=== PATIENT | female | born 1995 | race Caucasian/White ===

== ENCOUNTER 2017-12-25 20:44 | Inpatient (IN) | payer OTHER, SELFPAY ==
[2017-12-25] MEDS ORDERED: Ondansetron HCl/PF 4 MG/2 ML Vial ONE (21:11)
[2017-12-25] MEDS ORDERED: Acetaminophen 500 MG TAB ONE (21:11)
[2017-12-25 21:15] LABS: Bilirubin Negative (Negative); Blood, Urine Negative (Negative); Clarity CLOUDY (Clear); Glucose, Urine (Dipstick) Negative (Negative); Leukocyte Small (Negative); Nitrite Negative (Negative); Protein, Urine (Dipstick) Trace mg/dL (Neg-Trace); Specific Gravity, Urine 1.011 (1.002-1.036); Urobilinogen 0.2 mg/dL (0.2-1.0); pH, Urine 8.5 (5.0-9.0)
[2017-12-25 21:17] LABS: Bacteria/HPF None Seen HPF (None Seen); Hyaline Casts/LPF 0-3 HYALINE CAST LPF (0-3 Hyaline); RBC/HPF 0-3 HPF (0-3); Squamous Epithelial 0-3 HPF (0-3); WBC/HPF 21-50 HPF (0-3)
[2017-12-25] MEDS ORDERED: cefTRIAXone\\ROCEPHIN 1 GM VIAL ONE (21:51)
[2017-12-25 21:58] LABS: #Lymphocytes 2.1 thou/uL (1.20-3.40); #Neutrophils 11.3 thou/uL (1.40-6.50); %Basophils 0.1 % (0.0-1.0); %Eosinophils 0.2 % (0.0-10.0); %Lymphocytes 14.4 % (21.0-51.0); %Monocytes 7.2 % (0.0-10.0); %Neutrophils 78.1 % (42.0-75.0); Hemoglobin 12.1 g/dL (12.0-16.0); Mean Corpuscular HGB CONC 34.1 g/dL (32.0-36.0); Mean Corpuscular Hemoglobin 29.2 pg (27.0-31.0); Mean Corpuscular Volume 85.7 fL (78.0-98.0); Mean Platelet Volume 8.1 fL (7.4-10.4); Platelet Count 195 thou/uL (130-400); RBC Distribution Width 12.9 % (11.5-14.5); Red Blood Cell (RBC) Count 4.13 mill/uL (4.20-5.40); White Blood Cell (WBC) Count 14.4 thou/uL (4.8-10.8)
[2017-12-25 22:23] LABS: ALT (SGPT) Less than 7 U/L (8-55); AST (SGOT) 11 U/L (5-34); Albumin 3.5 g/dL (3.5-5.0); Alkaline Phosphatase 71 U/L (40-150); Anion Gap 18 mmol/L (10-20); BUN (Urea Nitrogen) 5 mg/dL (7.0-18.7); Bilirubin, Total 0.4 mg/dL (0.2-1.2); Calc. Creatinine Clearance 0 mL/min (70-130); Calcium 8.8 mg/dL (7.8-10.44); Carbon Dioxide 14 mmol/L (22-29); Chloride 106 mmol/L (98-107); Estimated GFR-MDRD Greater than 90; Globulin 3.1 g/dL (2.4-3.5); Glucose 83 mg/dL (70-105); Potassium 3.7 mmol/L (3.5-5.1); Protein, Total 6.6 g/dL (6.0-8.3); Sodium 134 mmol/L (136-145)
--- NOTE | 2017-12-25 22:48 | PDOC.EVN ---
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 In brief, she is a 22 yo G1 at approx 17 weeks by stated EDC who presents with back pain. Voiuded urine had WBCs but no bacteria seen. Temp is 98.8. ED provider suspected right CVAT. She has care by outside MD. As urine was voided, I have requested a cath specimen for better cliical decision making. I have also ordered/requested a ON sono for dates, a VP3, and a urine GC/Chl PCR. CMP is normal. WBC on CBC at 14. Await further eval.
[2017-12-25 23:13] LABS: Bilirubin Negative (Negative); Blood, Urine Negative (Negative); Clarity CLEAR (Clear); Glucose, Urine (Dipstick) Negative (Negative); Leukocyte Small (Negative); Nitrite Negative (Negative); Protein, Urine (Dipstick) Negative (Neg-Trace); Urobilinogen 0.2 mg/dL (0.2-1.0)
[2017-12-25 23:14] LABS: Bacteria/HPF None Seen HPF (None Seen); Hyaline Casts/LPF 4-6 HYALINE CAST LPF (0-3 Hyaline); Pathc Cast-AUWi Flag 0.43 (0-2.49); RBC/HPF 0-3 HPF (0-3); Squamous Epithelial 0-3 HPF (0-3); WBC/HPF 21-50 HPF (0-3)
[2017-12-25 23:26] LABS: Renal Epithelial 0-3 HPF (0-3)
--- NOTE | 2017-12-25 23:46 | PDOC.EVN ---
Event Note - Event Note Event Note: Patient seen in ER bed 3 just now and H&P completed. H&P scanned. In brief: (at 2335) HPI: 22 yo W at 16 weeks and 5 days by stated EDC with right back pain and HX UTI at 10 weeks (treated). Denies pain on urination or fevers at home. No medical isues. No VB, no LOF, no contractions. Can tolerate PO Here in ED, cath UA with WBCs...urine culture pending. Rocephin 1 gram IV in ED ordered. CMP is normal. Review of systems: per HPI Past medical: neg Past surg: none Allergies: None OB HX: x 1 in past Physical: Vitals stable, afebrile NAD Ut soft nt possible slight rt CVAT no VB Labs: WBC 14 CMP wnl OB Sono done...pending read VP3 pending GC/Chl pending Assessment/Plan: Possible rt pyelo at 16 weeks 5 days 1. Check urine culture 2. await sono read 3. Start IV Rocephin and po macrobid 4. vitamins 5. reg diet 6. IVFs at 125ml/hr mainline
--- NOTE | 2017-12-25 23:52 | ULT ---
OBSTETRICAL ULTRASOUND: 12/25/17 INDICATION: Right sided flank pain for one week without history of bleeding. FINDINGS: There is a single live intrauterine gestation in transverse presentation with the head to the materna l right. The placenta is anterior in location without evidence of previa. The cervical length measure d 5 cm. The cardiac activity is noted at 168 beats per minute. There is blood flow to bilateral ovaries that appear within normal limits. The visualized survey appear within normal limits. The head, heart, stomach, kidneys, cor d insertion, spine and visualized extremities appear within normal limits. A three vessel cord demons trated. Lips and nose were not seen. There is a nonvascular band of tissue seen inferior to the placental margin within the inferior aspec t of gestational sac suspicious for small amniotic band. Biparietal diameter measures 3.5 cm giving an estimated gestational age of 16 weeks and 6 days (47th percentile). Head circumference measures 13.53 cm given an estimated gestational age of 17 weeks and 0 days (48th percentile). Abdominal circumference measures 10.82 cm giving an estimated gestational age of 16 weeks and 5 days (39th percentile). Femur length measures 2.15 cm giving an estimated gestational age of 16 weeks and 3 days (24th percen tile). Estimated weight is 164 grams (23rd percentile). The right ovary measures 3.3 x 1.5 x 2.8 cm. Left ovary measures 3.4 x 1.4 x 2.3 cm. IMPRESSION: 1. Single live intrauterine gestation with size and dates as above. The estimated gestational ag e by ultrasound is 16 weeks, 5 days. Estimated due date of 06/06/18. 2. Small suspected amniotic band within the inferior aspect of the gestational sac. Continued cl inical and sonographic followup is recommended. 3. Visualized aspects of the survey appear within normal limits. Recommend a followup exam ination at 18-20 weeks gestation for a full detailed survey. POS: [facility]
[2017-12-26] MEDS ORDERED: Sodium Chloride 0.9% 10 ML ONE (02:14)
[2017-12-26] MEDS ORDERED: Nitrofurantoin Monohyd/M-Cryst 100 MG CAP PO SCH (02:15)
[2017-12-26 02:22] VITALS: BMI 20.8
[2017-12-26] MEDS: Lactated Ringer's 1,000 ML IV SCH ×4 (02:27→19:19)
--- NOTE | 2017-12-26 06:06 | PDOC.EVN ---
Event Note - Event Note Event Note: HD 0 to 1 Suspected PYELO at 16 weeks 6 days today Admitted 8.9.18 at 2330...in-house 7 hours S. Resting O. Afebrile, BPs wnl GC Chl pending VP3 pending Sono done S=D, small amniotib band seen...needs repeat sono later (info given) Urine CX pending ABX: Rocephin and macrobid EGA now 16 weeks 6 days Assessment and Plan: Suspected pyelo at 16 weeks 1. Await culture 2. Afebrile 3. On dual ABX 4. Continue in-house observations until urine culture resulted
--- NOTE | 2017-12-26 08:02 | PDOC.EVN ---
Event Note - Event Note Event Note: @7838: I was just called by the patient's RN that the patient's temp was now 101.6. I am awaiting cultures. I ordered tylenol for her. IVFs in use.Cultures and PCR tests pending.No sxs of renal colic so I do not suspect a stone at this time. Likely Pyelo.
[2017-12-26] MEDS: Acetaminophen 500 MG TAB PO PRN ×2 (08:15→16:49)
[2017-12-26] MEDS: Prenatal Vitamin 1 TAB PO SCH (09:55)
[2017-12-26] MEDS: Nitrofurantoin Monohyd/M-Cryst 100 MG CAP PO SCH ×2 (09:55→21:27)
[2017-12-26 18:50] LABS: #Lymphocytes 0.7 thou/uL (1.20-3.40); #Monocytes 0.5 thou/uL (0.11-0.59); #Neutrophils 7.5 thou/uL (1.40-6.50); %Basophils 0.2 % (0.0-1.0); %Eosinophils 0.2 % (0.0-10.0); %Lymphocytes 8.2 % (21.0-51.0); %Monocytes 5.1 % (0.0-10.0); %Neutrophils 86.2 % (42.0-75.0); Hemoglobin 11.2 g/dL (12.0-16.0); Mean Corpuscular HGB CONC 34.7 g/dL (32.0-36.0); Mean Corpuscular Hemoglobin 30.2 pg (27.0-31.0); Mean Platelet Volume 7.9 fL (7.4-10.4); Platelet Count 173 thou/uL (130-400); Red Blood Cell (RBC) Count 3.72 mill/uL (4.20-5.40); White Blood Cell (WBC) Count 8.7 thou/uL (4.8-10.8)
[2017-12-26] MEDS: cefTRIAXone\\ROCEPHIN 1 GM in Sodium Chloride 0.9% 100 ML IVPB SCH (21:27)
[2017-12-27] MEDS: Acetaminophen 500 MG TAB PO PRN ×2 (00:33→14:01)
[2017-12-27] MEDS: Lactated Ringer's 1,000 ML IV SCH ×3 (04:29→21:05)
--- NOTE | 2017-12-27 08:43 | PDOC.EVN ---
Event Note - Event Note Event Note: Egg Processor note: Urine Culture NGTD... continue ABX Temp HX reviewed
[2017-12-27] MEDS: Prenatal Vitamin 1 TAB PO SCH (09:48)
[2017-12-27] MEDS: Nitrofurantoin Monohyd/M-Cryst 100 MG CAP PO SCH ×2 (09:49→21:49)
--- NOTE | 2017-12-27 11:57 | PRG ---
DATE OF SERVICE: 12/27/2017 SUBJECTIVE: The patient is a 22-year-old female admitted for pyelonephritis with an intrauterine pre gnancy at 16 weeks, now on antibiotics for over 24 hours. OBJECTIVE: VITAL SIGNS: T-max yesterday was 102.1 at about 4:30 in the afternoon. She had another spike in temp erature of 100.8 at about midnight this morning, current temperature is 97.6, pulse of 72, respirator y rate of 16, satting 95%-98% on room air, blood pressure 84/46 while sleeping. GENERAL: The patient this morning is alert and oriented, cooperative and pleasant to interact with. She was awoken from rest. Reports that she is feeling better with less pain in her back, then she h ad on admission. GENERAL: She appears to be in no acute distress. She is alert and oriented. ABDOMEN: Soft. She has no significant CVA tenderness. EXTREMITIES: Nontender, nonedematous. ASSESSMENT AND PLAN: The patient is a 22-year-old female now hospital day #2 for pyelonephritis at 1 6 weeks gestation, on Rocephin and Macrobid. PLAN: I will continue her current course of treatment. Anticipate discharge after she has remains a febrile for 48 hours.
--- NOTE | 2017-12-27 17:01 | PDOC.EVN ---
Event Note - Event Note Event Note: Lab check: no growth on urine culture and blood culture neg VP3 neg GC/Cgl still pending Lst temp 100.8 at midnight
--- NOTE | 2017-12-27 19:29 | PDOC.EVN ---
Event Note - Event Note Event Note: Bed Check: 12/27/17 @1930: no temps today since midnight (100.8)...Tmax=99.1. Continue plan
[2017-12-27] MEDS: cefTRIAXone\\ROCEPHIN 1 GM in Sodium Chloride 0.9% 100 ML IVPB SCH (21:47)
[2017-12-28] MEDS: Acetaminophen 500 MG TAB PO PRN (00:24)
--- NOTE | 2017-12-28 02:30 | PDOC.EVN ---
Event Note - Event Note Event Note: DISCHARGE NOTE Day of eval 12/28/17: Location: room 306 EGA 17 weeks 1 day Empiric admit DX was pyelo at 16 weeks-17 weeks Discharge date: scheduled for 12/28/17 0900 S. feeds Better O. last temp was 100.8 at MD 12/27/17...afebrile for 26 hours URINE CULTURE NGTD after 36 hrs Blood CX was no grouwth PHYSICAL: NAD No VB No LOF A/P: Presumed pyelo..but neg urine culture. No evidence uterine infection. OK for AM [facility]. Hospital Course Summary: Patient was admitted a multip with presumed pyelo due to pyuria on UA. ABX were roscephin and macrobid. Seen 12/28/17 by me after being afebrile for 24 hours. Plan was for DC home 12/28/17 in AM shift. Pt to complete macrobid at home for emperic RX . She will be moving out of town at end of month. I encouraged her to get care IFRAH.
--- NOTE | 2017-12-28 02:31 | PDOC.EVN ---
Event Note - Event Note Event Note: Lab check: GC and Chl still not back...results still pending.
[2017-12-28 04:46] VITALS: BP 94/55
[2017-12-28] MEDS: Lactated Ringer's 1,000 ML IV SCH (08:41)
[2017-12-28] MEDS: Nitrofurantoin Monohyd/M-Cryst 100 MG CAP PO SCH (11:14)
[2017-12-28] MEDS: Prenatal Vitamin 1 TAB PO SCH (11:14)
[2017-12-28 11:23] VITALS: TEMP 97.8
== END 2017-12-28 12:45 | disposition home or self-care (01) | DRG 781 ==
LOC: ERS 20:44 → 3SE 12-26 01:33 → 3SW 12-28 08:12
PROVIDERS: ADMIT Obstetrics & Gynecology; ATTEND Obstetrics & Gynecology
DX: O23.02 Infections of kidney in pregnancy, second trimester (principal); Z3A.16 16 weeks gestation of pregnancy
CPT/HCPCS: 36415; 51701; 76805; 80053; 81003; 81015; 83605; 85025; 87040; 87086; 87480; 87491; 87510; 87591; 87660; 96361; 96374; 96375; A4216; A4353; J0696; J2405; J7050

== ENCOUNTER 2018-06-05 05:46 | Inpatient (IN) | payer OTHER ==
[2018-06-05 06:24] VITALS: BMI 24.7
[2018-06-05] MEDS ORDERED: Lidocaine 1% (PF) 30 ML VIAL SC PRN (07:32)
[2018-06-05] MEDS ORDERED: Ibuprofen 800 MG TAB PO PRN (07:32)
[2018-06-05] MEDS ORDERED: Butorphanol Tartrate 1 MG/ML VIAL SLOW IVP PRN (07:32)
[2018-06-05] MEDS ORDERED: Acetaminophen/Codeine 30-300mg Tablet PO PRN (07:32)
[2018-06-05] MEDS ORDERED: HYDROcodone/Acetaminophen 5/325 mg Tablet PO PRN (07:32)
[2018-06-05] MEDS ORDERED: Ondansetron PF 4 MG/2 ML Vial IVP PRN ×2 (07:32→09:19)
[2018-06-05] MEDS ORDERED: NS / Oxytocin 40 units/1000ml 1,000 ML IV PRN (07:32)
[2018-06-05] MEDS ORDERED: Butorphanol Tartrate 1 MG/ML VIAL ONE (07:41)
[2018-06-05] MEDS ORDERED: Lactated Ringer's 1,000 ML IV SCH ×2 (07:45)
[2018-06-05 08:08] LABS: Hemoglobin 9.3 g/dL (12.0-16.0); Mean Corpuscular HGB CONC 31.9 g/dL (32.0-36.0); Mean Corpuscular Hemoglobin 23.4 pg (27.0-31.0); Mean Corpuscular Volume 73.1 fL (78.0-98.0); Mean Platelet Volume 10.6 fL (7.4-10.4); Platelet Count 221 thou/uL (130-400); RBC Distribution Width 14.3 % (11.5-14.5); Red Blood Cell (RBC) Count 3.99 mill/uL (4.20-5.40); White Blood Cell (WBC) Count 11.7 thou/uL (4.8-10.8)
[2018-06-05 08:12] LABS: Amphetamine Not Detected (NotDetected); Barbiturates Screen Not Detected (NotDetected); Benzodiazepine Screen Not Detected (NotDetected); Cocaine Metabolite Screen Not Detected (NotDetected); Medtox Control Line Valid? VALID (VALID); Medtox Reader # READER 1; Methadone Not Detected (NotDetected); Methamphetamine Not Detected (NotDetected); Opiate Screen Not Detected (NotDetected); Oxycodone Screen Not Detected (NotDetected); Phencyclidine (PCP) Not Detected (NotDetected); THC/Cannabinoid Screen Not Detected (NotDetected); Tricyclic Screen Not Detected (NotDetected)
[2018-06-05 08:17] LABS: Hep B Surf Ag Non-Reactive S/CO (NonReactive); Syphilis Antibody Nonreactive (Nonreactive); Syphilis Antibody Index 0.04 S/CO (<1.00 Non-Reactive)
[2018-06-05] MEDS ORDERED: Oxytocin 10 UNITS/ML VIAL IVPB SCH (09:05)
[2018-06-05] MEDS ORDERED: Varicella virus, LIVE 0.5 ML VIAL SC ONE (09:19)
[2018-06-05] MEDS ORDERED: Measles/Mumps/Rubella 10 MCG/0.5 ML VIAL SC ONE (09:19)
[2018-06-05] MEDS ORDERED: Misoprostol 200 MCG TAB VAG PRN (09:19)
[2018-06-05] MEDS ORDERED: Benzocaine/Menthol 20-0.5% 60 ML CAN TOP PRN (09:19)
[2018-06-05] MEDS ORDERED: Zolpidem Tartrate 5 MG TAB PO PRN (09:19)
[2018-06-05] MEDS ORDERED: Lanolin Ointment 7 GM TUBE TOP PRN (09:19)
[2018-06-05] MEDS ORDERED: diphenhydrAMINE 25 MG CAP PO PRN (09:19)
[2018-06-05] MEDS ORDERED: Milk Of Magnesia 30 ML UDCUP PO PRN (09:19)
[2018-06-05] MEDS ORDERED: Preparation H Ointment 28 GM TUBE PR PRN (09:19)
[2018-06-05] MEDS ORDERED: Adacel (T-DAP) 0.5 ML SYRINGE IM ONE (09:19)
[2018-06-05] MEDS ORDERED: Promethazine HCl 25 MG/ML VIAL IM PRN (09:19)
[2018-06-05] MEDS ORDERED: Methylergonovine 0.2 MG/ML VIAL IM PRN (09:19)
[2018-06-05] MEDS ORDERED: Bisacodyl 10 MG SUPP PR PRN (09:19)
--- NOTE | 2018-06-05 09:24 | PDOC.OPDEL ---
OB Operative/Delivery Note Delivery Dr/Surgeon: Roxanne Cortez MD Pre-Delivery Diagnosis: active labor Procedure/Post Delivery Dx: spontaneous vaginal delivery Weeks gestation: 39 Anesthesia: none - Findings A Sex: female ("Haily") Weight: 7 lb 3 oz - 1 min: 9 - 5 min: 9 - Additional Findings/Plan Placenta delivered: spontaneous Repaired Obstetrical Laceration: none Estimated blood loss: 347 Post delivery plan: routine recovery
[2018-06-05] MEDS ORDERED: NS / Oxytocin 40 units/1000ml 1,000 ML IV SCH (09:30)
[2018-06-05 09:32] LABS: HIV (1/2) Antibody/Antigen Non-Reactive (NonReactive); HIV 1/2 INDEX 0.09 S/CO (<1.00)
[2018-06-05] MEDS ORDERED: Oxytocin 10 UNITS/ML VIAL ONE (10:01)
[2018-06-05] MEDS: Ibuprofen 800 MG TAB PO SCH ×2 (14:57→21:26)
[2018-06-05] MEDS: Ferrous Sulfate 325 MG TAB PO SCH (18:48)
[2018-06-05] MEDS: Docusate Calcium (SURFAK) 240 MG CAP PO SCH (21:26)
[2018-06-06] MEDS: Ibuprofen 800 MG TAB PO SCH ×3 (05:51→21:25)
--- NOTE | 2018-06-06 06:26 | PDOC.PP ---
Post Progress Note Post Day #: 1 Subjective: Doing well, no complaints. PO intake tolerated: yes Ambulation: yes Vital Signs (12 hours) Temp Pulse Resp BP Pulse Ox 06/06/18 00:35 98.0 F 70 16 120/56 L 06/05/18 20:10 98.2 F 86 16 93/52 L 99 Weight Weight 140 lb - Physical Examination General: NAD Respiratory: non-labored breathing Abdominal: lochia (normal), no distention, appropriately TTP Fundus firm & at: below umbilicus Extremities: negative homans (B) Neurological: no gross focal deficits Psychiatric: A&Ox3, normal affect Result Diagrams: 06/05/18 06:56 Additional Labs: Post Labs Blood Type O POSITIVE 06/05/18 06:57 Hep Bs Antigen Non-Reactive S/CO (NonReactive) 06/05/18 06:56 - Assessment/Plan Doing well. Continue routine care. Anticipate d/c tomorrow. Case management consult pending.
[2018-06-06] MEDS: Docusate Calcium (SURFAK) 240 MG CAP PO SCH ×2 (09:48→21:24)
[2018-06-06] MEDS: Prenatal Vitamin 1 TAB PO SCH (09:48)
[2018-06-06] MEDS: Ferrous Sulfate 325 MG TAB PO SCH ×2 (09:48→17:12)
[2018-06-07] MEDS: Ibuprofen 800 MG TAB PO SCH (05:44)
--- NOTE | 2018-06-07 06:05 | PDOC.PP ---
Post Progress Note Post Day #: 2 Subjective: Doing well PO intake tolerated: yes Flatus: yes Ambulation: yes Vital Signs (12 hours) Temp Pulse Resp BP Pulse Ox 06/06/18 20:00 97.9 F 75 16 99/56 L 96 Weight Weight 140 lb BPs 110s/70s - Physical Examination General: NAD Cardiovascular: no m/r/g Abdominal: + bowel sounds, lochia, no distention, appropriately TTP Extremities: negative homans (B) Result Diagrams: 06/05/18 06:56 Additional Labs: Post Labs Blood Type O POSITIVE 06/05/18 06:57 Hep Bs Antigen Non-Reactive S/CO (NonReactive) 06/05/18 06:56 Rubella IgG Antibody Less than 0.90 index (Immune >0.99) L 06/05/18 06:56 - Assessment/Plan PPD2 doing well....BPs wnl, ok for discharge. Rubella nonimmune...will need vaccine prior to dsch if not yet done. Will follow up with [facility] or [facility] for PP care
[2018-06-07 08:32] VITALS: BP 117/71; TEMP 98.1
[2018-06-07] MEDS: Ferrous Sulfate 325 MG TAB PO SCH (09:03)
[2018-06-07] MEDS: Prenatal Vitamin 1 TAB PO SCH (09:32)
[2018-06-07] MEDS: Docusate Calcium (SURFAK) 240 MG CAP PO SCH (09:32)
== END 2018-06-07 11:43 | disposition home or self-care (01) | DRG 807 ==
LOC: L&D/OP 05:46 → L&D 06:43 → 3SW 13:08
PROVIDERS: ADMIT Obstetrics & Gynecology; ATTEND Obstetrics & Gynecology
PROC: 10E0XZZ Delivery of Products of Conception, External Approach (ICD-10-PCS; principal; 2018-06-05)
PROC: 10907ZC Drainage of Amniotic Fluid, Therapeutic from Products of Conception, Via Natural or Artificial Opening (ICD-10-PCS; 2018-06-05)
DX: O80 Encounter for full-term uncomplicated delivery (principal); Z37.0 Single live birth; Z3A.39 39 weeks gestation of pregnancy; Z90.49 Acquired absence of other specified parts of digestive tract
CPT/HCPCS: 80306; 85027; 86762; 86780; 86850; 86900; 86901; 87340; 87389; 99285; J0595; J2001; J2590

== ENCOUNTER 2018-11-28 13:54 | Emergency (ER) | payer OTHER ==
[2018-11-28 14:54] LABS: Bilirubin Negative (Negative); Blood, Urine Negative (Negative); Clarity Clear (Clear); Glucose, Urine (Dipstick) Normal (Negative); Leukocyte Negative Leu/uL (Negative); Nitrite Negative (Negative); Protein, Urine (Dipstick) 10 mg/dL (Neg-Trace); Urobilinogen Normal mg/dL (Less than 2)
[2018-11-28] MEDS ORDERED: Acetaminophen 500 MG TAB ONE (15:55)
[2018-11-28] MEDS ORDERED: Metoclopramide HCl 10 MG/2 ML VIAL ONE (15:55)
[2018-11-28] MEDS ORDERED: diphenhydrAMINE 50 MG/ML VIAL ONE (15:55)
[2018-11-28 16:04] LABS: Pregnancy Test - Urine (BHCG) POSITIVE (Negative); Pregu Control Background? CLEAR/WHITE (CLR/WHITE); Pregu Control Bar Appear? YES (CONTROL BAR); Specific Gravity 1.016 (1.002-1.036)
--- NOTE | 2018-11-28 16:57 | ULT ---
US Pelvic W Doppler HISTORY: Pelvic pain COMPARISON: None TECHNIQUE: Multiple grayscale and color Doppler images were obtained in a transabdominal and transvag inal pelvic ultrasound. Spectral analysis of the Doppler waveforms of the ovaries were performed. FINDINGS: CERVIX: Unremarkable UTERUS: Normal uterine morphology. Intrauterine gestation is demonstrated, with gestational sac, feta l pole and small remnant yolk sac visualized, with the gestational age by ultrasound corresponding to 10 week 1 day gestation. Stated clinical dates are 9 weeks. Estimated date of delivery by ultrasou nd is June 25, 2019. Amniotic fluid volume is subjectively normal motion is noted by photography instructor during the exam. cardiac activity is documented at 189 bpm . No free fluid is present. RIGHT OVARY: Normal flow, without focal mass. LEFT OVARY: Normal flow, without focal mass. IMPRESSION: Early live intrauterine gestation, as above. As necessary, continued imaging follow-up may be obtained. Transcribed Date/Time: 11/28/2018 5:00 PM
[2018-11-28 17:18] LABS: #Monocytes 0.6 thou/uL (0.11-0.59); #Neutrophils 8.9 thou/uL (1.40-6.50); %Basophils 0.1 % (0.0-1.0); %Eosinophils 0.1 % (0.0-10.0); %Lymphocytes 9.4 % (21.0-51.0); %Monocytes 5.4 % (0.0-10.0); Hemoglobin 8.4 g/dL (12.0-16.0); Mean Corpuscular HGB CONC 29.6 g/dL (32.0-36.0); Mean Corpuscular Hemoglobin 20.9 pg (27.0-31.0); Mean Corpuscular Volume 70.6 fL (78.0-98.0); Mean Platelet Volume 11.5 fL (7.4-10.4); Platelet Count 204 thou/uL (130-400); RBC Distribution Width 16.3 % (11.5-14.5); Red Blood Cell (RBC) Count 4.01 mill/uL (4.20-5.40); White Blood Cell (WBC) Count 10.4 thou/uL (4.8-10.8)
[2018-11-28 17:34] LABS: Anisocytosis SLIGHT = 6-15 cells (100X) (0-5/hpf); Elliptocytes SLIGHT = 2-5 cells (100X) (0-1/hpf); Hypochromia SLIGHT = 6-15 cells (100X) (0-5/hpf); MDiff Complete? YES; Microcytosis SLIGHT = 6-15 cells (100X) (0-5/hpf); Ovalocytes SLIGHT = 2-5 cells (100X) (0-1/hpf); Platelet Morphology Comment Appears Adequate; Polychromasia SLIGHT = 2-3 cells (100X) (0-2/hpf); Schistocytes SLIGHT = 2-5 cells (100X) (0-1/hpf)
== END 2018-11-28 18:55 | disposition home or self-care (01) ==
LOC: ERS 13:54
DX: O99.89 Other specified diseases and conditions complicating pregnancy, childbirth and the puerperium (principal); M53.3 Sacrococcygeal disorders, not elsewhere classified; R51 Headache; Z3A.10 10 weeks gestation of pregnancy
CPT/HCPCS: 76856; 81003; 81025; 84702; 85025; 86900; 86901; 93976; 96365; 96375; J1200; J2765

== ENCOUNTER 2019-03-20 10:58 | Day surgery (SDC) | payer OTHER ==
[2019-03-20 11:44] LABS: #Eosinphils 0.1 thou/uL (0.0-0.7); #Lymphocytes 1.6 thou/uL (1.20-3.40); #Monocytes 0.4 thou/uL (0.11-0.59); #Neutrophils 4.7 thou/uL (1.40-6.50); %Basophils 0.7 % (0.0-1.0); %Eosinophils 1.7 % (0.0-10.0); %Lymphocytes 23.4 % (21.0-51.0); %Monocytes 5.5 % (0.0-10.0); %Neutrophils 68.7 % (42.0-75.0); Hemoglobin 9.1 g/dL (12.0-16.0); Mean Corpuscular HGB CONC 32.7 g/dL (32.0-36.0); Mean Corpuscular Hemoglobin 23.3 pg (27.0-31.0); Mean Corpuscular Volume 71.1 fL (78.0-98.0); Mean Platelet Volume 10.7 fL (7.4-10.4); Platelet Count 214 thou/uL (130-400); RBC Distribution Width 18.5 % (11.5-14.5); White Blood Cell (WBC) Count 6.9 thou/uL (4.8-10.8)
[2019-03-20] MEDS ORDERED: ISOVUE-370 76%-LOCM 1 ML ONE (12:00)
[2019-03-20 12:03] LABS: Anisocytosis MODERATE=16-30 cells (100X) (0-5/hpf); Elliptocytes SLIGHT = 2-5 cells (100X) (0-1/hpf); Hypochromia SLIGHT = 6-15 cells (100X) (0-5/hpf); MDiff Complete? YES; Microcytosis MODERATE=15-30 cells (100X) (0-5/hpf); Platelet Morphology Comment Appears Adequate; Polychromasia SLIGHT = 2-3 cells (100X) (0-2/hpf)
[2019-03-20 12:07] LABS: ALT (SGPT) Less than 7 U/L (8-55); AST (SGOT) 9 U/L (5-34); Albumin 3.3 g/dL (3.5-5.0); Alkaline Phosphatase 74 U/L (40-110); Anion Gap 13 mmol/L (10-20); BUN (Urea Nitrogen) 7 mg/dL (7.0-18.7); Bilirubin, Total 0.2 mg/dL (0.2-1.2); Calc. Creatinine Clearance 0 mL/min (70-130); Calcium 8.2 mg/dL (7.8-10.44); Carbon Dioxide 19 mmol/L (22-29); Chloride 107 mmol/L (98-107); Estimated GFR-MDRD Greater than 90; Globulin 2.8 g/dL (2.4-3.5); Glucose 106 mg/dL (70-105); Potassium 3.6 mmol/L (3.5-5.1); Protein, Total 6.1 g/dL (6.0-8.3); Sodium 135 mmol/L (136-145)
--- NOTE | 2019-03-20 12:30 | CT ---
CTA Angio Chest W WO Con History: Chest pain Comparison: None. Findings: CT angiogram chest performed after the intravenous ministration of contrast. 3-D rendering provided. No proximal segmental pulmonary arterial filling defect. No pericardial effusion. Limited evaluation of the upper abdomen is unremarkable. Aortic size is normal. No pericardial fluid. No acute osseous abnormality. The lungs are clear. No pneumothorax. No effusion. Impression: No acute intrathoracic abnormality
[2019-03-20 15:46] VITALS: BMI 26.5
--- NOTE | 2019-03-20 17:10 | ER ---
DATE OF SERVICE: 03/20/2019 PRIMARY OB: Tony Gomes MD CHIEF COMPLAINT: Chest pain, resolved. HISTORY OF PRESENT ILLNESS: The patient is a 23-year-old, G3, P2 female with an intrauterine at 26 weeks and 1 day, presenting to the emergency room with chest pain and shortness of breath since last night, which she reported as someone pressing on her chest. The patient's workup included EKG and a CT angiogram, which were all negative. The patient's lab work including CMP and CBC was significant only for anemia. After workup, the patient was transferred to Labor and Delivery for monitoring. The patient apparently confirms that her pain has resolved and denies any further complaints. PAST MEDICAL HISTORY: Depression, anxiety, and history of suicide attempt. PAST SURGICAL HISTORY: Appendectomy. SOCIAL HISTORY: Denies drug, alcohol, or tobacco use. ALLERGIES: NO KNOWN DRUG ALLERGIES. MEDICATIONS: vitamins. OB LABS: Unavailable at the time of dictation. REVIEW OF SYSTEMS: The patient denies fever, fall, or headache. She reports chest pain and shortness of breath, that have now resolved. Denies nausea or vomiting. Denies diarrhea or constipation. Denies any new rashes, hip problems, knee problems, muscle weakness, vaginal bleeding, leakage of fluid, or urinary urgency or frequency. PHYSICAL EXAMINATION: VITAL SIGNS: Blood pressure is 112/56, heart rate is 67, respiratory rate of 14, temperature 98.6. GENERAL: She appears to be in no acute distress. She is alert and oriented, cooperative and pleasant to interact with. HEENT: Head is normocephalic and atraumatic. LUNGS: Clear to auscultation bilaterally. HEART: Has regular rate and rhythm. ABDOMEN: Gravid, soft, and nontender. EXTREMITIES: Nontender and nonedematous. heart tracing shows the fetus with a baseline in the 140s with moderate long-term variability and positive 15 x 15 accelerations. No contractions seen on the monitor. ASSESSMENT AND PLAN: The patient is a 23-year-old multiparous female with an intrauterine at 26 weeks, who presented with chest pain down in the emergency room, that is now resolved. There are no obstetric complaints. Fetus is reassuring for gestational age, and she is being discharged to home. The patient has been counseled to follow up with her primary OB as scheduled. Job ID: [id number]
[2019-03-21] MEDS ORDERED: FLU VACC QS2019-20(6MOS UP)/PF 60 MCG/0.5 ML SYRINGE IM ONE (09:00)
== END 2019-03-20 16:42 | disposition home or self-care (01) ==
LOC: ERS 10:58 → L&D/OP 14:49
PROVIDERS: ATTEND Obstetrics & Gynecology
DX: O99.89 Other specified diseases and conditions complicating pregnancy, childbirth and the puerperium (principal); R07.9 Chest pain, unspecified; O99.012 Anemia complicating pregnancy, second trimester; D64.9 Anemia, unspecified; Z3A.26 26 weeks gestation of pregnancy
CPT/HCPCS: 36415; 71275; 80053; 85025; 93005; 99282; Q9966

== ENCOUNTER 2019-06-16 17:43 | Inpatient (IN) | payer OTHER ==
[2019-06-16 18:23] VITALS: BMI 28.8
[2019-06-16] MEDS ORDERED: HYDROcodone/Acetaminophen 5/325 mg Tablet PO PRN ×2 (18:44)
[2019-06-16] MEDS ORDERED: Ondansetron PF 4 MG/2 ML Vial IVP PRN ×2 (18:44→22:26)
[2019-06-16] MEDS ORDERED: hydrALAZINE 20 MG/ML VIAL SLOW IVP PRN ×2 (18:44→22:26)
[2019-06-16] MEDS ORDERED: NS / Oxytocin 40 units/1000ml 1,000 ML IV PRN (18:44)
[2019-06-16] MEDS ORDERED: Lidocaine 1% (PF) 30 ML VIAL SC PRN (18:44)
[2019-06-16] MEDS ORDERED: Ibuprofen 800 MG TAB PO PRN (18:44)
[2019-06-16] MEDS ORDERED: Acetaminophen 500 MG TAB PO PRN (18:44)
[2019-06-16] MEDS ORDERED: Meperidine HCl/PF 25 MG/ML VIAL IM/IV PRN (18:44)
[2019-06-16] MEDS ORDERED: Butorphanol Tartrate 1 MG/ML VIAL SLOW IVP PRN (18:44)
[2019-06-16] MEDS ORDERED: Promethazine HCl 25 MG/ML VIAL IM PRN (18:44)
[2019-06-16] MEDS ORDERED: Lactated Ringer's 1,000 ML IV SCH ×2 (18:45)
[2019-06-16] MEDS ORDERED: NS w/ Oxytocin 10 units 500 ML IV SCH (18:45)
[2019-06-16] MEDS ORDERED: Penicillin G Potassium 5 MILL.UNITS in Sodium Chloride 0.9% 100 ML IVPB SCH (19:00)
[2019-06-16 19:38] LABS: Hemoglobin 8.8 g/dL (12.0-16.0); Mean Corpuscular HGB CONC 31.4 g/dL (32.0-36.0); Mean Corpuscular Hemoglobin 20.6 pg (27.0-31.0); Mean Corpuscular Volume 65.8 fL (78.0-98.0); Mean Platelet Volume 12.3 fL (7.4-10.4); Platelet Count 221 thou/uL (130-400); RBC Distribution Width 17.3 % (11.5-14.5); Red Blood Cell (RBC) Count 4.28 mill/uL (4.20-5.40); White Blood Cell (WBC) Count 16.4 thou/uL (4.8-10.8)
[2019-06-16 20:14] LABS: Syphilis Antibody Nonreactive (Nonreactive); Syphilis Antibody Index 0.04 S/CO (<1.00 Non-Reactive)
[2019-06-16 20:15] LABS: HBSAg Index 0.19 S/CO (0-0.99); Hep B Surf Ag Non-Reactive S/CO (NonReactive)
[2019-06-16] MEDS ORDERED: Misoprostol 200 MCG TAB VAG PRN (22:26)
[2019-06-16] MEDS ORDERED: Acetaminophen/Codeine 30-300mg Tablet PO PRN ×2 (22:26)
[2019-06-16] MEDS ORDERED: Bisacodyl 10 MG SUPP PR PRN (22:26)
[2019-06-16] MEDS ORDERED: Lanolin Ointment 7 GM TUBE TOP PRN (22:26)
[2019-06-16] MEDS ORDERED: Benzocaine-Menthol 82.5 ML CAN TOP PRN (22:26)
[2019-06-16] MEDS ORDERED: diphenhydrAMINE 25 MG CAP PO PRN (22:26)
[2019-06-16] MEDS ORDERED: Zolpidem Tartrate 5 MG TAB PO PRN (22:26)
[2019-06-16] MEDS ORDERED: Preparation H Ointment 28 GM TUBE PR PRN (22:26)
[2019-06-16] MEDS ORDERED: Milk Of Magnesia 30 ML UDCUP PO PRN (22:26)
[2019-06-16] MEDS ORDERED: NS / Oxytocin 40 units/1000ml 1,000 ML IV SCH (22:30)
[2019-06-16] MEDS ORDERED: Penicillin G 2.5 MILL.units 2.5 MILL.UNITS in Premix Bag 1 BAG IVPB SCH (23:00)
[2019-06-17] MEDS: Ibuprofen 800 MG TAB PO SCH ×3 (05:57→21:05)
[2019-06-17] MEDS ORDERED: Adacel (T-DAP) 0.5 ML SYRINGE IM ONE (09:00)
[2019-06-17] MEDS: Prenatal Vitamin 1 TAB PO SCH (09:47)
[2019-06-17] MEDS: Ferrous Sulfate 325 MG TAB PO SCH ×2 (09:47→18:07)
[2019-06-17] MEDS: Docusate Calcium (SURFAK) 240 MG CAP PO SCH ×2 (09:47→21:05)
[2019-06-17 20:06] VITALS: BP 117/57; TEMP 98
[2019-06-18] MEDS: Ibuprofen 800 MG TAB PO SCH (05:42)
[2019-06-18] MEDS: Docusate Calcium (SURFAK) 240 MG CAP PO SCH (09:41)
[2019-06-18] MEDS: Prenatal Vitamin 1 TAB PO SCH (09:41)
[2019-06-18] MEDS: Ferrous Sulfate 325 MG TAB PO SCH (09:41)
--- NOTE | 2019-06-21 01:28 | PQF ---
Mary Cheema MD [id number] CLINICAL DOCUMENTATION CLARIFICATION FORM: POST DISCHARGE Addendum to original discharge summary date: _Gestational anemia due to , Acute blood loss from delivery Late entry note date: __ DATE: 06/21/2019 ATTN: Elías Gomes Please exercise your independent, professional judgment in responding to the clarification form. Clinical indicators are provided on the bottom of this form for your review Please check appropriate box(s): [ X ] Acute blood loss anemia [ ] Chronic blood loss anemia [ ] Post-op anemia related to acute blood loss [ X ] Anemia unspecified [ ] Other diagnosis [ ] Unable to determine In addition, please specify: Present on Admission (POA): [ X ] Yes [ ] No [ ] Unable to determine For continuity of documentation, please document condition throughout progress notes and discharge summary. Thank You. CLINICAL INDICATORS - SIGNS / SYMPTOMS / LABS Labor and delivery 06/16 "anemia" Labs 06/16: RBC=4.28 Hgb=8.8 Hct=28.2 Vital signs BP: 06/1748=844/57 Vital signs Pulse: 06/17=92 RISK FACTORS Labor and delivery 06/16-38 weeks gestation Labor and delivery 06/16-s/p TREATMENTS: JUL 17-IVF MAR 06/17-Ferrous Sulfate 325mg Oral Collected 06/16-Hematology monitoring (This form is maintained as a part of the permanent medical record) 2014 [employer] All Rights Reserved [email or web address] [phone] [email or web address]
== END 2019-06-18 14:25 | disposition home or self-care (01) | DRG 807 ==
LOC: L&D/OP 17:43 → L&D 22:21 → 3SW 06-17 02:19
PROVIDERS: ADMIT Obstetrics & Gynecology; ATTEND Obstetrics & Gynecology
PROC: 10E0XZZ Delivery of Products of Conception, External Approach (ICD-10-PCS; principal; 2019-06-16)
PROC: 10907ZC Drainage of Amniotic Fluid, Therapeutic from Products of Conception, Via Natural or Artificial Opening (ICD-10-PCS; 2019-06-16)
PROC: 3E0234Z Introduction of Serum, Toxoid and Vaccine into Muscle, Percutaneous Approach (ICD-10-PCS; 2019-06-16)
DX: O99.824 Streptococcus B carrier state complicating childbirth (principal); D64.9 Anemia, unspecified; O99.02 Anemia complicating childbirth; Z23 Encounter for immunization; Z3A.38 38 weeks gestation of pregnancy; Z37.0 Single live birth; Z90.49 Acquired absence of other specified parts of digestive tract
CPT/HCPCS: 36415; 85027; 86780; 86850; 86900; 86901; 87340; J2001; J2540; J3490

== ENCOUNTER 2021-01-20 21:14 | Emergency (ER) | payer OTHER ==
[2021-01-20] MEDS ORDERED: Sucralfate 1 GM/10 ML UDCUP ONE (21:36)
[2021-01-20 22:16] LABS: #Eosinphils 0.2 thou/uL (0.0-0.7); #Lymphocytes 1.5 thou/uL (1.20-3.40); #Monocytes 0.5 thou/uL (0.11-0.59); #Neutrophils 2.9 thou/uL (1.40-6.50); %Basophils 0.7 % (0.0-1.0); %Eosinophils 3.3 % (0.0-10.0); %Lymphocytes 28.8 % (21.0-51.0); %Monocytes 10.2 % (0.0-10.0); Hemoglobin 10.4 g/dL (12.0-16.0); Mean Corpuscular HGB CONC 31.2 g/dL (32.0-36.0); Mean Corpuscular Hemoglobin 22.5 pg (27.0-31.0); Mean Corpuscular Volume 72.3 fL (78.0-98.0); Mean Platelet Volume 10.4 fL (7.4-10.4); Platelet Count 225 thou/uL (130-400); RBC Distribution Width 15.4 % (11.5-14.5); Red Blood Cell (RBC) Count 4.63 mill/uL (4.20-5.40); White Blood Cell (WBC) Count 5.1 thou/uL (4.8-10.8)
[2021-01-20 22:32] LABS: ALT (SGPT) 9 U/L (8-55); AST (SGOT) 11 U/L (5-34); Albumin 4.1 g/dL (3.5-5.0); Alkaline Phosphatase 54 U/L (40-110); Anion Gap 10 mmol/L (10-20); BUN (Urea Nitrogen) 11 mg/dL (7.0-18.7); Bilirubin, Total 0.2 mg/dL (0.2-1.2); Calc. Creatinine Clearance 0 mL/min (70-130); Carbon Dioxide 26 mmol/L (22-29); Chloride 105 mmol/L (98-107); Globulin 2.7 g/dL (2.4-3.5); Glucose 99 mg/dL (70-105); Lipase 19 U/L (8-78); Potassium 3.4 mmol/L (3.5-5.1); Protein, Total 6.8 g/dL (6.0-8.3); Sodium 138 mmol/L (136-145)
[2021-01-20 22:34] LABS: BHCG - Serum Negative (NEGATIVE); Pregs Control Background? CLEAR/WHITE (CLR/WHITE); Pregs Control Bar Appear? YES (CONTROL BAR)
[2021-01-21 19:44] LABS: SARS-CoV-2 PCR by NAA DETECTED (NotDetected)
== END 2021-01-21 00:25 | disposition home or self-care (01) ==
LOC: ERS 21:14
DX: U07.1 COVID-19 (principal); K82.4 Cholesterolosis of gallbladder; K76.0 Fatty (change of) liver, not elsewhere classified
CPT/HCPCS: 36415; 76705; 80053; 83690; 84703; 85025; 93005; U0003; U0005